=== PATIENT | female | born 1995 | race Caucasian/White ===

== ENCOUNTER 2017-02-18 18:12 | Emergency (ER) | payer MEDICAID ==
[2017-02-18 18:34] VITALS: BP 121/74; PULSE 74; RESP 18; TEMP 98.2; O2SAT 100
[2017-02-18 18:35] VITALS: BP 121/74; PULSE 74; RESP 18; TEMP 98.2; O2SAT 100
--- NOTE | 2017-02-18 20:37 | PD ---
HPI Chief Complaint: Psychiatric Symptoms Time Seen by Provider: 20:33 Travel History International Travel<30 days: No Contact w/Intl Traveler<30days: No Traveled to known affect area: No History of Present Illness HPI Patient is a 21-year-old female that was transferred from [facility] for psychiatric evaluation under Wang act for suicidal ideations and possible overdose. Patient was observed in [place], she has no complaints at this time. Patient allegedly had an argument with her significant other which is what prompted the overdose. [facility] Past Medical History Depression: Yes Social History Alcohol Use: Yes Tobacco Use: Yes Substance Use: Yes Allergies-Medications (Allergen,Severity, Reaction): Coded Allergies: No Known Allergies (Unverified , 02/18/17) Review of Systems Except as stated in HPI: all other systems reviewed are Neg Psychiatric: Positive: Depression, Suicidal Ideations, Substance Abuse Physical Exam Narrative GENERAL: Well-developed, well-nourished, alert female. Resting comfortably in no acute distress SKIN: Focused skin assessment warm/dry. HEAD: Atraumatic. Normocephalic. EYES: Pupils equal and round. No scleral icterus. No injection or drainage. ENT: No nasal bleeding or discharge. Mucous membranes pink and moist. NECK: Trachea midline. No JVD. CARDIOVASCULAR: Regular rate and rhythm. No murmur appreciated. RESPIRATORY: No accessory muscle use. Clear to auscultation. Breath sounds equal bilaterally. GASTROINTESTINAL: Abdomen soft, non-tender, nondistended. Hepatic and splenic margins not palpable. MUSCULOSKELETAL: No obvious deformities. No clubbing. No cyanosis. No edema. NEUROLOGICAL: Awake and alert. No obvious cranial nerve deficits. Motor grossly within normal limits. Normal speech. PSYCHIATRIC: Appropriate mood and affect; insight and judgment normal. Data Data Last Documented VS Vital Signs Date Time Temp Pulse Resp B/P Pulse Ox O2 Delivery O2 Flow Rate FiO2 02/18/17 18:35 98.2 74 18 121/74 100 Room Air MDM Medical Decision Making Medical Screen Exam Complete: Yes Emergency Medical Condition: Yes Medical Record Reviewed: Yes Interpretation(s) Vital Signs Date Time Temp Pulse Resp B/P Pulse Ox O2 Delivery O2 Flow Rate FiO2 02/18/17 18:35 98.2 74 18 121/74 100 Room Air 02/18/17 18:34 98.2 74 18 121/74 100 Room Air Differential Diagnosis Mood disorder versus substance abuse or suicidal ideations versus other Narrative Course Paged a 21-year-old female transferred from [facility] for psychiatric evaluation. She was medically cleared there, her urine drug screen was positive for cocaine, was negative for benzodiazepines despite patient's report that she overdosed on Ativan. Patient is resting comfortably with no complaints at this time. Patient awaiting psychiatrist in a.m. Diagnosis Primary Impression: Medical clearance for psychiatric admission Additional Impressions: Suicidal ideations Substance abuse Condition: Stable Rox Polanco Ann [facility] Feb 18, 2017 20:37
[2017-02-18 22:08] VITALS: BP 103/56; PULSE 80; RESP 18
[2017-02-19 01:51] VITALS: BP 102/59; PULSE 67; RESP 18
[2017-02-19 06:05] VITALS: BP 118/60; PULSE 77; RESP 18
[2017-02-19 10:08] VITALS: BP 122/68; PULSE 78; RESP 18; O2SAT 97
--- NOTE | 2017-02-19 14:27 | PD ---
History of Present Illness Chief Complaint: Psychiatric Symptoms Time Seen by Provider: 14:20 Travel History International Travel<30 Days: No Contact w/Intl Traveler<30days: No Known affected area: No Legal Status Legal Status: Wang Act Wang Act Signed By: History of Present Illness: 21-year-old female who overdosed on Ativan. Apparently she was using cocaine and got into an argument with her boyfriend. She and her boyfriend broke up because she slept with another male. She is now regretting her actions with regard to the overdose. She states she has no intention of killing herself or anyone else. She has no suicidal or homicidal ideation, plan or intent. She acknowledges her use of cocaine. She acknowledges sleeping with another man. She acknowledges her wish to break up with the current boyfriend. 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 She then feels that she would like to return to her work. Denies symptoms of depression. Cognition intact. Patient marin for safety. No psychosis. PFSH Past Medical History Depression: Yes Psychiatric History Psychiatric History History of Inpatient Treatment: No Guns or firearms in home: No Social History Hx Alcohol Use: Yes Hx Tobacco Use: Yes Hx Substance Use: Yes Allergies-Medications (Allergen,Severity, Reaction): Coded Allergies: No Known Allergies (Unverified , 02/18/17) Review of Systems Except as stated in HPI: all other systems reviewed are Neg Exam Alert: Yes Counselor: Person, Place, Date, Situation Mood: Anxious, Calm Affect: Restricted Speech: Clear, Logical Eye Contact: Normal Memory Intact: Immediate, Recent, Remote Delusions: No Insight/Judgement Adequate MDM Medical Decision Making Medical Record Reviewed: Yes Assessment/Plan Patient seen, medical record review and this case was reviewed with the nurse. Patient has 2 problems, 1 with the boyfriend and her being unfaithful. The second problem is her cocaine use. Both were addressed with the patient and she is willing to go home to her mother, stay away from the ex-boyfriend, not sleep with other men, and go back to work. Patient encouraged to seek outpatient treatment. Orders Diet Regular Basic (02/19/17 Breakfast) Diet Regular Basic (02/19/17 Lunch) Results Vital Signs Date Time Temp Pulse Resp B/P Pulse Ox O2 Delivery O2 Flow Rate FiO2 02/19/17 10:08 78 18 122/68 97 Room Air 02/19/17 06:05 77 18 118/60 02/19/17 01:51 67 18 102/59 02/18/17 22:08 80 18 103/56 Room Air 02/18/17 18:35 98.2 74 18 121/74 100 Room Air 02/18/17 18:34 98.2 74 18 121/74 100 Room Air Diagnosis Primary Impression: Adjustment disorder with mixed disturbance of emotions and conduct Additional Impression: Cocaine abuse Departure Forms: Tests/Procedures Patient Instructions: General Instructions, Mood Disorders (ED), Medical Clearance for Psychiatric Care (ED) Additional Instructions: DISCHARGE HOME DX. ADJUSTMENT DISORDER FOLLOW-UP WITH PMD NEEDED RETURN TO ED FOR WORSENING PROBLEMS Disposition: 01 DISCHARGE HOME Condition: Stable Problem Qualifiers Daniel Vargas MD Feb 19, 2017 14:27
== END 2017-02-19 14:53 | disposition home or self-care (01) ==
LOC: NEPJ 18:12
DX: T42.4X2A Poisoning by benzodiazepines, intentional self-harm, initial encounter (principal); F43.25 Adjustment disorder with mixed disturbance of emotions and conduct; F14.10 Cocaine abuse, uncomplicated; F32.9 Major depressive disorder, single episode, unspecified
CPT/HCPCS: 99285